=== PATIENT | female | born 1960 | race Caucasian/White ===

== ENCOUNTER 2016-07-29 06:50 | Emergency (ER) | payer BC ==
--- NOTE | 2016-07-29 09:24 | ED NURSING NOTES ---
Clinical Report - Nurses [facility] [address] [place] [address] 07/29/2016 6:51 Patient: LYNDON TURNER TRIAGE Triage time 06:56 Jul 29 2016. Acuity: LEVEL 3. Chief Complaint: (Post op Calf pain). SEPSIS SCREEN: Sepsis Screen: negative. Negative (no infection suspected/documented). JOSÉ COMA SCORE: [place] Coma Scale: 15- eyes open spontaneously (4); best verbal response- oriented x 4 (5); best motor response- obeys commands (6). --07:01 Asia Pelayo 06:55 07/29/16. BP: 134/88. HR: 68. RR: 20. O2 saturation: 100% on room air. Temp: 97.8 F (oral). Pain level now: 07/03. --07:01 Asia Pelayo. Weight: 83.9 kg stated. Height/Length: 65 inches Per Patient. BMI: 30.8. --07:00 Asia Pelayo. Medications Atenolol Oral. --06:57 Asia Pelayo Citalopram Hydrobromide Oral (Tablet 40 mg) 1 tablet. --06:57 Asia Pelayo Omeprazole Oral 40 mg, daily. --06:57 Asia Pelayo ASA Oral. --06:58 Asia Pelayo OxyCODONE HCl Oral. --06:58 Asia Pelayo Morphine Sulfate ER Oral. --06:58 Asia Pelayo Bactrim Oral. --06:59 Asia Pelayo. Medication/allergy information source: the patient. --07:01 Asia Pelayo. Allergies Levaquin. (tachycardia ) --06:58 Asia Pelayo Enalapril. --06:58 Asia Pelayo. History Arrived by private vehicle. Historian: patient. Accompanied by friend. Primary physician (Bib WALTON, Sur[facility]). This started just prior to arrival. ( Patient reports she had a total knee replacement done ten days ago at [place]. She reports that she began having pain this morning in her calf that woke her from sleep. Patient has visiting nurse coming to her home Sunday and a follow up with surgeon on the .). PAST MEDICAL HX: Immunizations: up-to-date. The patient is post-menopausal. SOCIAL HX: Never smoker. No alcohol use or drug use. No infectious disease exposure. ABUSE ASSESSMENT: No report of abuse. FALL RISK ASSESSMENT: Fall risk assessment completed. No fall risk identified. NUTRITIONAL RISK ASSESSMENT: The nutritional risk assessment revealed no deficiencies. FUNCTIONAL ASSESSMENT: Functional assessment: no impairments noted. LEARNING NEEDS ASSESSMENT: The learning needs assessment revealed no barriers. SKIN INTEGRITY ASSESSMENT: Skin integrity risk assessment completed. No skin integrity risk identified. --07:01 Asia Pelayo. PROBLEMS: Pneumonia. Hypertension. Hyperlipidemia. Hypertension . Arthritis of knee. --06:59 Asia Pelayo. ADDITIONAL SURGERIES: Hiatal hernia repair . Knee joint operation. --06:59 Asia Pelayo. Interventions ID band on patient. To treatment room. --07:01 Asia Pelayo. PHYSICAL ASSESSMENT 07:07/29/16. Ambulatory to room. GENERAL / NEURO / PSYCH: Alert. Oriented X 4. Appears in no acute distress. HEENT: Mucous membranes are pink. RESPIRATORY: Respirations not labored. CVS: Normal sinus rhythm noted. GI / : Abdomen soft and nontender. EXTREMITIES: Skin intact on the extremities. Increased with dorsiflexion left-sided calf tenderness. Capillary refill is less than 2 seconds in the extremities. Extremity pulses are within normal limits. No lower extremity edema. SKIN: Skin rash present on the extremities (slight petechial rash on left lower leg, patient reports skin sensitivity to surgical wash). Skin is warm and dry. --07:03 Asia Pelayo. NURSING PROGRESS NOTES 07:07/29/2016 Site #1 started via IV in the right antecubital space with an 20g angiocath, with aseptic technique and good blood return; one attempt. Blood drawn: rainbow set. Labeled in the presence of the patient and sent to the lab. Saline lock flushed with 10 mL saline. --07:08 Asia Pelayo 07:04 07/29/16. Pulse oximeter and NIBP monitor placed on patient; monitor alarms on. Patient gowned. Warming measures: blanket applied. Reassurance given to the patient. Two patient identifiers checked. Call light placed in reach. Side rails up x 1. Bed placed in lowest position. Brakes of bed on. Patient ready for evaluation- chart flagged and ED physician notified. --07:04 Pierce Asia 07:10 07/29/16. Care transferred and report given (Florence LAKE). --07:10 Asia Pelayo Patient informed about reason for wait and about plan of care. --07:33 Florence Winter R.N. 07:32 07/29/16. BP: 110/71. HR: 71. RR: 16. O2 saturation: 98%. Pain level now 10. --07:33 Florence Winter R.N. 08:26 07/29/2016 Dilaudid (HYDROmorphone HCl PF) IVP 0.5 mg given over 1 minute(s) via site #1. Allergies verified, confirmed 5 rights and sedative warning given to the patient. IV patency established. IV site checked: no pain, redness, or swelling. IV flushed thoroughly pre- and post-medication administration. IVP given by RN. --08:26 Nila Lozano R.N. 09:09 07/29/2016 Dilaudid (HYDROmorphone HCl PF) IVP 0.5 mg given over 1 minute(s) via site #1. Allergies verified, confirmed 5 rights and sedative warning given to the patient. IV patency established. IV site checked: no pain, redness, or swelling. IV flushed thoroughly pre- and post-medication administration. IVP given by RN. --09:10 Nila Lozano R.N. 09:31 07/29/16. BP: 123/79. HR: 65. RR: 15. O2 saturation: 100%. Pain level now 0/10. --09:32 Florence Winter R.N. DISPOSITION / DISCHARGE ( 09:31 07/29/16. BP: 123/79. HR: 65. RR: 15. O2 saturation: 100%. Pain level now 0/10. 9:32 Florence Winter R.N.). --09:42 Florence Winter R.N. 09:35 07/29/16. RR: 16. --09:42 Florence Winter R.N. 09:40. No learning barriers present. Discharge instructions provided and reviewed with the patient. Reviewed referral to family practice for followup. Patient verbalized understanding. Written instructions provided in Austrian. The patient was discharged home and accompanied by mixing machine tender cork gasket. She left the Emergency Department ambulatory and via private vehicle. Hr Consultant driving. Medication list reviewed and validated. --11:22 Florence Winter R.N. Departure time: 939. --11:22 Florence Winter R.N. Locked/Released at 07/29/2016 11:22 by Florence Winter R.N.
--- NOTE | 2016-07-29 09:24 | ED CLINICAL REPORT ---
Clinical Report - Physicians/Mid Levels [facility] [address] [place] [address] 07/29/2016 6:51 Patient: LYNDON TURNER Time Seen: 07:27 Jul 29 2016. Arrived- By private vehicle. Historian- patient. CPT: ER phys charges level 4 (#[id number]). HISTORY OF PRESENT ILLNESS Chief Complaint: LOWER EXTREMITY PAIN and SWELLING. Severity is described as being moderate. The quality is noted to be aching and "pain". This started today Patient reports she had a total knee replacement done ten days ago at [place]. She reports that she began having pain this morning in her calf that woke her from sleep. Patient has visiting nurse coming to her home Sunday and a follow up with surgeon on the .). Pt had a vigorous session of PT yesterday and worked the leg hard. Symptoms located in the area of the left knee and left leg. The patient has not had redness. No swelling, bladder dysfunction, bowel dysfunction, sensory loss or motor loss. She has had difficulty walking. Patient notes an injury. Similar symptoms previously: None. Recent medical care: The patient was seen recently at another facility and hospitalized. Evaluation/treatment- knee surgery. REVIEW OF SYSTEMS No cough, chest pain, difficulty breathing, fever or skin rash. No enlarged lymph nodes, neck pain, back pain, sore throat or abdominal pain. No vomiting or black stools. PAST HISTORY ( Pneumonia. Hypertension. Hyperlipidemia. Hypertension . Arthritis of knee. ADDITIONAL SURGERIES: Hiatal hernia repair . Knee joint operation.). Medications: Bactrim Oral. Morphine Sulfate ER Oral. OxyCODONE HCl Oral. ASA Oral. Omeprazole Oral 40 mg, daily. Citalopram Hydrobromide Oral (Tablet 40 mg) 1 tablet. Atenolol Oral. Allergies: Enalapril. Levaquin. (tachycardia ). SOCIAL HISTORY Never smoker. No alcohol use or drug use. ADDITIONAL NOTES The nursing notes have been reviewed. PHYSICAL EXAM Vital Signs: 07/29/2016 06:55 BP: 134/88. HR: 68. RR: 20. O2 saturation: 100%. Temp: 97.8 F. Pain level now: 10. Appearance: Alert. Anxious. Appears to be in pain. Patient in moderate distress. Eyes: Eyes normal inspection. ENT: Pharynx normal. Neck: Normal inspection. Neck supple. No JVD. CVS: Normal heart rate and rhythm. Heart sounds normal. Respiratory: No respiratory distress. Breath sounds normal. Back: No tenderness. Skin: Skin intact. Skin warm. Normal skin color. Extremities: Left knee: moderate tenderness and mild swelling located in the medial joint line and lateral joint line. Limited ROM secondary to pain (diminished flexion and extension). Small joint effusion present. Neurovascular intact distally. No abrasion, ecchymosis or deformity. No signs of infection involving the lower extremities. Moderate left-sided calf tenderness. (Wound healing well. No sign of infection . No redness around knee.). Neuro, Vascular and Tendons: No pulse deficit present. Neuro: Oriented X 3. No motor deficit. No sensory deficit. LABS, X-RAYS, AND EKG Lower Extremity Sonography: Negative study. PROGRESS AND PROCEDURES Course of Care: Pt will reduce PT activity on Sunday as she has 3/wk PT. She will contact surgeon for continued high levels of pain. Patient/family counseled. Disposition: Discharged. Condition: stable. CLINICAL IMPRESSION Left leg pain due to recent physical therapy. No DVT. INSTRUCTIONS Warnings: Further evaluation is necessary. GENERAL WARNINGS: Return or contact your physician immediately if your condition worsens or changes unexpectedly, if not improving as expected, or if other problems arise. Your Current Medications: CONTINUE TAKING THE FOLLOWING MEDICATIONS: ASA Oral. Atenolol Oral. Bactrim Oral. Citalopram Hydrobromide Oral : Tablet 40 mg, 1 tablet. Morphine Sulfate ER Oral. Omeprazole Oral : 40 mg daily. OxyCODONE HCl Oral. Follow-up: Follow up with an orthopedic surgeon in three days if not better. Understanding of the discharge instructions verbalized by patient. (Electronically signed by Doug Fisher MD 07/30/2016 0:19)
--- NOTE | 2016-07-29 09:24 | ED ORDER SUMMARY ---
..... Patient: LYNDON TURNER OrderSheet [facility] VisitID: [id number] [address] [place] [address] 55y, F Registration Date/Time: 07/29/2016 ORDER SHEET Weight: 83.9 kg (stated) Allergies: Levaquin, Enalapril GENERAL ORDERS: US Venous Left Urgent (07:30 07/29/2016 Michael SARABIA) (Ack 7:36 Ray) (9:31 SReitz R.N.) MEDICATION ORDERS: IV FLUIDS: Dilaudid IV 0.5 mg (NOW) (Sched q10m for X2); Routine (prn pain.) (Sched q10m for X2) (08:21 07/29/2016 Michael SARABIA) (8:26 MWinterer R.N.) IV Saline Lock (08:21 07/29/2016 Michael SARABIA) (8:26 MWinterer R.N.) Dilaudid IV 0.5 mg (NOW) (Sched q10m for X2); Routine (prn pain.) (08:31 07/29/2016 Michael SARABIA) (9:10 MWinterer R.N.) Dilaudid IV 1 mg (NOW) (09:00 07/29/2016 Michael SARABIA) (Ack 9:10 MWinterer R.N.) ORDER SHEET NOTES: [Electronically signed by Florence Winter R.N. (11:07/29/2016)] [Electronically signed by Doug Fisher MD (00:19 07/30/2016)] [Electronically locked/signed by Florence Winter R.N. (11:07/29/2016)]
--- NOTE | 2016-07-29 09:24 | ED ORDER SUMMARY ---
..... Patient: LYNDON TURNER OrderSheet [facility] VisitID: [id number] [address] [place] [address] 55y, F Registration Date/Time: 07/29/2016 ORDER SHEET Weight: 83.9 kg (stated) Allergies: Levaquin, Enalapril GENERAL ORDERS: US Venous Left Urgent (07:30 07/29/2016 Michael SARABIA) (Ack 7:36 Ray) (9:31 SReitz R.N.) MEDICATION ORDERS: IV FLUIDS: Dilaudid IV 0.5 mg (NOW) (Sched q10m for X2); Routine (prn pain.) (Sched q10m for X2) (08:21 07/29/2016 Michael SARABIA) (8:26 MWinterer R.N.) IV Saline Lock (08:21 07/29/2016 Michael SARABIA) (8:26 MWinterer R.N.) Dilaudid IV 0.5 mg (NOW) (Sched q10m for X2); Routine (prn pain.) (08:31 07/29/2016 Michael SARABIA) (9:10 MWinterer R.N.) Dilaudid IV 1 mg (NOW) (09:00 07/29/2016 Michael SARABIA) (Ack 9:10 MWinterer R.N.) ORDER SHEET NOTES: [Electronically signed by Florence Winter R.N. (11:07/29/2016)] [Electronically signed by Doug Fisher MD (00:19 07/30/2016)] [Electronically locked/signed by Florence Winter R.N. (11:07/29/2016)]
--- NOTE | 2016-07-29 09:24 | ED CLINICAL REPORT ---
Clinical Report - Physicians/Mid Levels [facility] [address] [place] [address] 07/29/2016 6:51 Patient: LYNDON TURNER Time Seen: 07:27 Jul 29 2016. Arrived- By private vehicle. Historian- patient. CPT: ER phys charges level 4 (#[id number]). HISTORY OF PRESENT ILLNESS Chief Complaint: LOWER EXTREMITY PAIN and SWELLING. Severity is described as being moderate. The quality is noted to be aching and "pain". This started today Patient reports she had a total knee replacement done ten days ago at [place]. She reports that she began having pain this morning in her calf that woke her from sleep. Patient has visiting nurse coming to her home Sunday and a follow up with surgeon on the .). Pt had a vigorous session of PT yesterday and worked the leg hard. Symptoms located in the area of the left knee and left leg. The patient has not had redness. No swelling, bladder dysfunction, bowel dysfunction, sensory loss or motor loss. She has had difficulty walking. Patient notes an injury. Similar symptoms previously: None. Recent medical care: The patient was seen recently at another facility and hospitalized. Evaluation/treatment- knee surgery. REVIEW OF SYSTEMS No cough, chest pain, difficulty breathing, fever or skin rash. No enlarged lymph nodes, neck pain, back pain, sore throat or abdominal pain. No vomiting or black stools. PAST HISTORY ( Pneumonia. Hypertension. Hyperlipidemia. Hypertension . Arthritis of knee. ADDITIONAL SURGERIES: Hiatal hernia repair . Knee joint operation.). Medications: Bactrim Oral. Morphine Sulfate ER Oral. OxyCODONE HCl Oral. ASA Oral. Omeprazole Oral 40 mg, daily. Citalopram Hydrobromide Oral (Tablet 40 mg) 1 tablet. Atenolol Oral. Allergies: Enalapril. Levaquin. (tachycardia ). SOCIAL HISTORY Never smoker. No alcohol use or drug use. ADDITIONAL NOTES The nursing notes have been reviewed. PHYSICAL EXAM Vital Signs: 07/29/2016 06:55 BP: 134/88. HR: 68. RR: 20. O2 saturation: 100%. Temp: 97.8 F. Pain level now: 10. Appearance: Alert. Anxious. Appears to be in pain. Patient in moderate distress. Eyes: Eyes normal inspection. ENT: Pharynx normal. Neck: Normal inspection. Neck supple. No JVD. CVS: Normal heart rate and rhythm. Heart sounds normal. Respiratory: No respiratory distress. Breath sounds normal. Back: No tenderness. Skin: Skin intact. Skin warm. Normal skin color. Extremities: Left knee: moderate tenderness and mild swelling located in the medial joint line and lateral joint line. Limited ROM secondary to pain (diminished flexion and extension). Small joint effusion present. Neurovascular intact distally. No abrasion, ecchymosis or deformity. No signs of infection involving the lower extremities. Moderate left-sided calf tenderness. (Wound healing well. No sign of infection . No redness around knee.). Neuro, Vascular and Tendons: No pulse deficit present. Neuro: Oriented X 3. No motor deficit. No sensory deficit. LABS, X-RAYS, AND EKG Lower Extremity Sonography: Negative study. PROGRESS AND PROCEDURES Course of Care: Pt will reduce PT activity on Sunday as she has 3/wk PT. She will contact surgeon for continued high levels of pain. Patient/family counseled. Disposition: Discharged. Condition: stable. CLINICAL IMPRESSION Left leg pain due to recent physical therapy. No DVT. INSTRUCTIONS Warnings: Further evaluation is necessary. GENERAL WARNINGS: Return or contact your physician immediately if your condition worsens or changes unexpectedly, if not improving as expected, or if other problems arise. Your Current Medications: CONTINUE TAKING THE FOLLOWING MEDICATIONS: ASA Oral. Atenolol Oral. Bactrim Oral. Citalopram Hydrobromide Oral : Tablet 40 mg, 1 tablet. Morphine Sulfate ER Oral. Omeprazole Oral : 40 mg daily. OxyCODONE HCl Oral. Follow-up: Follow up with an orthopedic surgeon in three days if not better. Understanding of the discharge instructions verbalized by patient. (Electronically signed by Doug Fisher MD 07/30/2016 0:19)
--- NOTE | 2016-07-29 09:24 | ED NURSING NOTES ---
Clinical Report - Nurses [facility] [address] [place] [address] 07/29/2016 6:51 Patient: LYNDON TURNER TRIAGE Triage time 06:56 Jul 29 2016. Acuity: LEVEL 3. Chief Complaint: (Post op Calf pain). SEPSIS SCREEN: Sepsis Screen: negative. Negative (no infection suspected/documented). JOSÉ COMA SCORE: [place] Coma Scale: 15- eyes open spontaneously (4); best verbal response- oriented x 4 (5); best motor response- obeys commands (6). --07:01 Asia Pelayo 06:55 07/29/16. BP: 134/88. HR: 68. RR: 20. O2 saturation: 100% on room air. Temp: 97.8 F (oral). Pain level now: 07/03. --07:01 Asia Pelayo. Weight: 83.9 kg stated. Height/Length: 65 inches Per Patient. BMI: 30.8. --07:00 Asia Pelayo. Medications Atenolol Oral. --06:57 Asia Pelayo Citalopram Hydrobromide Oral (Tablet 40 mg) 1 tablet. --06:57 Asia Pelayo Omeprazole Oral 40 mg, daily. --06:57 Asia Pelayo ASA Oral. --06:58 Asia Pelayo OxyCODONE HCl Oral. --06:58 Asia Pelayo Morphine Sulfate ER Oral. --06:58 Asia Pelayo Bactrim Oral. --06:59 Asia Pelayo. Medication/allergy information source: the patient. --07:01 Asia Pelayo. Allergies Levaquin. (tachycardia ) --06:58 Asia Pelayo Enalapril. --06:58 Asia Pelayo. History Arrived by private vehicle. Historian: patient. Accompanied by friend. Primary physician (Bib WALTON, Surgeon [facility]). This started just prior to arrival. ( Patient reports she had a total knee replacement done ten days ago at [place]. She reports that she began having pain this morning in her calf that woke her from sleep. Patient has visiting nurse coming to her home Sunday and a follow up with surgeon on the .). PAST MEDICAL HX: Immunizations: up-to-date. The patient is post-menopausal. SOCIAL HX: Never smoker. No alcohol use or drug use. No infectious disease exposure. ABUSE ASSESSMENT: No report of abuse. FALL RISK ASSESSMENT: Fall risk assessment completed. No fall risk identified. NUTRITIONAL RISK ASSESSMENT: The nutritional risk assessment revealed no deficiencies. FUNCTIONAL ASSESSMENT: Functional assessment: no impairments noted. LEARNING NEEDS ASSESSMENT: The learning needs assessment revealed no barriers. SKIN INTEGRITY ASSESSMENT: Skin integrity risk assessment completed. No skin integrity risk identified. --07:01 Asia Pelayo. PROBLEMS: Pneumonia. Hypertension. Hyperlipidemia. Hypertension . Arthritis of knee. --06:59 Asia Pelayo. ADDITIONAL SURGERIES: Hiatal hernia repair . Knee joint operation. --06:59 Asia Pelayo. Interventions ID band on patient. To treatment room. --07:01 Asia Pelayo. PHYSICAL ASSESSMENT 07:07/29/16. Ambulatory to room. GENERAL / NEURO / PSYCH: Alert. Oriented X 4. Appears in no acute distress. HEENT: Mucous membranes are pink. RESPIRATORY: Respirations not labored. CVS: Normal sinus rhythm noted. GI / : Abdomen soft and nontender. EXTREMITIES: Skin intact on the extremities. Increased with dorsiflexion left-sided calf tenderness. Capillary refill is less than 2 seconds in the extremities. Extremity pulses are within normal limits. No lower extremity edema. SKIN: Skin rash present on the extremities (slight petechial rash on left lower leg, patient reports skin sensitivity to surgical wash). Skin is warm and dry. --07:03 Asia Pelayo. NURSING PROGRESS NOTES 07:07/29/2016 Site #1 started via IV in the right antecubital space with an 20g angiocath, with aseptic technique and good blood return; one attempt. Blood drawn: rainbow set. Labeled in the presence of the patient and sent to the lab. Saline lock flushed with 10 mL saline. --07:08 Asia Pelayo 07:04 07/29/16. Pulse oximeter and NIBP monitor placed on patient; monitor alarms on. Patient gowned. Warming measures: blanket applied. Reassurance given to the patient. Two patient identifiers checked. Call light placed in reach. Side rails up x 1. Bed placed in lowest position. Brakes of bed on. Patient ready for evaluation- chart flagged and ED physician notified. --07:04 Pierce Asia 07:10 07/29/16. Care transferred and report given (Florence LAKE). --07:10 Asia Pelayo Patient informed about reason for wait and about plan of care. --07:33 Florence Winter R.N. 07:32 07/29/16. BP: 110/71. HR: 71. RR: 16. O2 saturation: 98%. Pain level now 10. --07:33 Florence Winter R.N. 08:26 07/29/2016 Dilaudid (HYDROmorphone HCl PF) IVP 0.5 mg given over 1 minute(s) via site #1. Allergies verified, confirmed 5 rights and sedative warning given to the patient. IV patency established. IV site checked: no pain, redness, or swelling. IV flushed thoroughly pre- and post-medication administration. IVP given by RN. --08:26 Nila Lozano R.N. 09:09 07/29/2016 Dilaudid (HYDROmorphone HCl PF) IVP 0.5 mg given over 1 minute(s) via site #1. Allergies verified, confirmed 5 rights and sedative warning given to the patient. IV patency established. IV site checked: no pain, redness, or swelling. IV flushed thoroughly pre- and post-medication administration. IVP given by RN. --09:10 Nila Lozano R.N. 09:31 07/29/16. BP: 123/79. HR: 65. RR: 15. O2 saturation: 100%. Pain level now 0/10. --09:32 Florence Winter R.N. DISPOSITION / DISCHARGE ( 09:31 07/29/16. BP: 123/79. HR: 65. RR: 15. O2 saturation: 100%. Pain level now 0/10. 9:32 Florence Winter R.N.). --09:42 Florence Winter R.N. 09:35 07/29/16. RR: 16. --09:42 Florence Winter R.N. 09:40. No learning barriers present. Discharge instructions provided and reviewed with the patient. Reviewed referral to family practice for followup. Patient verbalized understanding. Written instructions provided in Turkish. The patient was discharged home and accompanied by qa test analyst. She left the Emergency Department ambulatory and via private vehicle. Tape Recording Machine Operator driving. Medication list reviewed and validated. --11:22 Florence Winter R.N. Departure time: 939. --11:22 Florence Winter R.N. Locked/Released at 07/29/2016 11:22 by Florence Winter R.N.
--- NOTE | 2016-07-29 10:01 | DIAGNOSTIC IMAGING REPORT ---
PROCEDURE: US VENOUS - LEFT EXT INDICATION: SWELLING TECHNIQUE: Duplex sonography of the deep venous system in the left lower extremity was performed. Compression and augmentation techniques were used. COMPARISON: None. FINDINGS: Normal compression of the greater saphenous, common femoral, superficial femoral, popliteal, peroneal, and posterior tibial veins. Normal augmentation. There is no evidence of superficial or deep venous thrombosis. Mild calf edema . 8 mm left inguinal lymph node. IMPRESSION: 1. Negative venous ultrasound of the left lower extremity.
--- NOTE | 2016-07-30 00:19 | ED MED RECONCILIATION SUMMARY ---
Patient: LYNDON TURNER Medication Reconciliation Report [facility] VisitID: [id number] [address] [place] [address] 55y, F Registration Date/Time: 07/29/2016 Weight: 83.9 kg Height/Length: 65 in. BMI: 30.8 ALLERGIES: Enalapril, Levaquin The patient's Home Medications are listed below: CONTINUE TAKING THE FOLLOWING MEDICATIONS: ASA Oral Atenolol Oral Bactrim Oral Citalopram Hydrobromide Oral (40 mg) 1 tablet Morphine Sulfate ER Oral Omeprazole Oral 40 mg, daily OxyCODONE HCl Oral The source(s) of the original Home Medication information: patient The following Medications were given to the patient in the Emergency Department: Dilaudid [IVP] IVP 0.5 mg, administered: 07/29/2016 8:26:00 AM Dilaudid [IVP] IVP 0.5 mg, administered: 07/29/2016 9:09:00 AM The following Medications were prescribed to the patient: None.
--- NOTE | 2016-07-30 00:19 | ED DISCHARGE INSTRUCTIONS ---
Patient: LYNDON TURNER General Instructions [facility] VisitID: [id number] [address] [place] [address] 55y, F Registration Date/Time: 07/29/2016 Left leg pain due to recent physical therapy. No DVT. INSTRUCTIONS Warnings: Further evaluation is necessary. GENERAL WARNINGS: Return or contact your physician immediately if your condition worsens or changes unexpectedly, if not improving as expected, or if other problems arise. Your Current Medications: CONTINUE TAKING THE FOLLOWING MEDICATIONS: ASA Oral. Atenolol Oral. Bactrim Oral. Citalopram Hydrobromide Oral : Tablet 40 mg, 1 tablet. Morphine Sulfate ER Oral. Omeprazole Oral : 40 mg daily. OxyCODONE HCl Oral. Follow-up: Follow up with an orthopedic surgeon in three days if not better. Understanding of the discharge instructions verbalized by patient. (Electronically signed by Doug Fisher MD 07/30/2016 0:19)
--- NOTE | 2016-07-30 00:19 | ED MED RECONCILIATION SUMMARY ---
Patient: LYNDON TURNER Medication Reconciliation Report [facility] VisitID: [id number] [address] [place] [address] 55y, F Registration Date/Time: 07/29/2016 Weight: 83.9 kg Height/Length: 65 in. BMI: 30.8 ALLERGIES: Enalapril, Levaquin The patient's Home Medications are listed below: CONTINUE TAKING THE FOLLOWING MEDICATIONS: ASA Oral Atenolol Oral Bactrim Oral Citalopram Hydrobromide Oral (40 mg) 1 tablet Morphine Sulfate ER Oral Omeprazole Oral 40 mg, daily OxyCODONE HCl Oral The source(s) of the original Home Medication information: patient The following Medications were given to the patient in the Emergency Department: Dilaudid [IVP] IVP 0.5 mg, administered: 07/29/2016 8:26:00 AM Dilaudid [IVP] IVP 0.5 mg, administered: 07/29/2016 9:09:00 AM The following Medications were prescribed to the patient: None.
--- NOTE | 2016-07-30 00:19 | ED DISCHARGE INSTRUCTIONS ---
Patient: LYNDON TURNER General Instructions [facility] VisitID: [id number] [address] [place] [address] 55y, F Registration Date/Time: 07/29/2016 Left leg pain due to recent physical therapy. No DVT. INSTRUCTIONS Warnings: Further evaluation is necessary. GENERAL WARNINGS: Return or contact your physician immediately if your condition worsens or changes unexpectedly, if not improving as expected, or if other problems arise. Your Current Medications: CONTINUE TAKING THE FOLLOWING MEDICATIONS: ASA Oral. Atenolol Oral. Bactrim Oral. Citalopram Hydrobromide Oral : Tablet 40 mg, 1 tablet. Morphine Sulfate ER Oral. Omeprazole Oral : 40 mg daily. OxyCODONE HCl Oral. Follow-up: Follow up with an orthopedic surgeon in three days if not better. Understanding of the discharge instructions verbalized by patient. (Electronically signed by Doug Fisher MD 07/30/2016 0:19)
--- NOTE | 2016-07-30 00:19 | ED MAR SUMMARY ---
..... Medication Administration Record [facility] [address] [place] [address] Patient: LYNDON TURNER Visit ID: [id number] 55y, F Weight: 83.9 kg Height/Length: 65 in BMI: 30.8 ALLERGIES: Enalapril, Levaquin Given 08:26 07/29/2016 Nila Lozano, RJuliusNJulius Medication Administered: DILAUDID [IVP] (HYDROMORPHONE HCL PF), Dose: 0.5 mg IVP over 1 minute(s), Site: #1 right AC. Medication Ordered: Dilaudid IV 0.5 mg (NOW) (Sched q10m for X2); Routine (prn pain.) 1 of 2. Given 09:09 07/29/2016 Nila Lozano, R.N. Medication Administered: DILAUDID [IVP] (HYDROMORPHONE HCL PF), Dose: 0.5 mg IVP over 1 minute(s), Site: #1 right AC. Medication Ordered: Dilaudid IV 0.5 mg (NOW) (Sched q10m for X2); Routine (prn pain.) 2 of 2.
--- NOTE | 2016-07-30 00:19 | ED MAR SUMMARY ---
..... Medication Administration Record [facility] [address] [place] [address] Patient: LYNDON TURNER Visit ID: [id number] 55y, F Weight: 83.9 kg Height/Length: 65 in BMI: 30.8 ALLERGIES: Enalapril, Levaquin Given 08:26 07/29/2016 Nila Lozano, RJuliusNJulius Medication Administered: DILAUDID [IVP] (HYDROMORPHONE HCL PF), Dose: 0.5 mg IVP over 1 minute(s), Site: #1 right AC. Medication Ordered: Dilaudid IV 0.5 mg (NOW) (Sched q10m for X2); Routine (prn pain.) 1 of 2. Given 09:09 07/29/2016 Nila Lozano, R.N. Medication Administered: DILAUDID [IVP] (HYDROMORPHONE HCL PF), Dose: 0.5 mg IVP over 1 minute(s), Site: #1 right AC. Medication Ordered: Dilaudid IV 0.5 mg (NOW) (Sched q10m for X2); Routine (prn pain.) 2 of 2.
== END 2016-07-29 09:42 | disposition home or self-care (01) ==
LOC: ED SRH 06:50
DX: M79.662 Pain in left lower leg (principal); Y93.B9 Activity, other involving muscle strengthening exercises; Z96.652 Presence of left artificial knee joint; I10 Essential (primary) hypertension; Z79.891 Long term (current) use of opiate analgesic